=== PATIENT | male | born 2000 | race Caucasian/White ===

== ENCOUNTER 2018-02-17 21:17 | Emergency (ER) | payer BC, OTHER ==
--- NOTE | 2018-02-17 21:30 | UC ---
Hand/Wrist HPI - HPI Summary HPI Summary: 17 yo male presents with left middle finger laceration. He tells me that he was cutting wires in his car and the knife slipped and sliced his finger. Unsure date of last tetanus - History Of Current Complaint Stated Complaint: FINGER INJURY Time Seen by Provider: 02/17/18 21:30 Hx Obtained From: Patient Onset/Duration: Sudden Onset Severity Initially: Mild Severity Currently: Mild Pain Intensity: 2 Pain Scale Used: 0-10 Numeric - Allergies/Home Medications Allergies/Adverse Reactions: Allergies Allergy/AdvReac Type Severity Reaction Status Date / Time No Known Allergies Allergy Verified 02/17/18 21:42 PMH/Surg Hx/FS Hx/Imm Hx - Additional Past Medical History Additional PMH: ADHD - Surgical History Surgical History: None - Family History Known Family History: Positive: None - Social History Occupation: Student Lives: With Family Alcohol Use: None Substance Use Type: None Smoking Status (MU): Never Smoked Tobacco Review of Systems Constitutional: Negative Skin: Other - Laceration left middle finger Respiratory: Negative Cardiovascular: Negative Neurovascular: Negative Musculoskeletal: Negative Neurological: Negative Psychological: Negative All Other Systems Reviewed And Are Negative: Yes Physical Exam - Summary Physical Exam Summary: GENERAL: NAD. WDWN. No pain distress. SKIN: Left middle finger ulnar DIP: 1.5 linear laceration with exposed subcutaneous tissue. No tendon involvement appreciated. Bleeding mildly. No FB. NECK: Supple. Nontender. No lymphadenopathy. CHEST: No accessory muscle use. Breathing comfortably and in no distress. CV: RRR. Without m/r/g. MSK: Left middle finger FROM at DIP and PIP. NEURO: Alert. CN II-XII grossly intact. PSYCH: Age appropriate behavior. Triage Information Reviewed: Yes Vital Signs: Vital Signs: Temp Pulse Resp BP Pulse Ox 98.6 F 69 18 139/67 98 02/17/18 21:37 02/17/18 21:37 02/17/18 21:37 02/17/18 21:37 02/17/18 21:37 Hand/Wrist Course/Dx - Course Course Of Treatment: A time out was performed, witnessed, and signed. The area was irrigated with 250mL sterile saline. 2mL of 2% lidocaine without epi was administered and good anesthetization was achieved. In the usual sterile fashion , SIX 6-0 nylon interrupted sutures were placed. The wound was bandaged with telfa. The finger was placed in a finger splint to prevent flexion. Pt tolerated procedure well. tdap updated today - Differential Dx/Diagnosis Provider Diagnoses: Laceration left middle finger Discharge - Sign-Out/Discharge Documenting (check all that apply): Discharge/Admit/Transfer - Discharge Plan Condition: Stable Disposition: HOME Patient Education Materials: Care For Your Stitches (DC) Referrals: Sandra Guerrero MD [Primary Care Provider] - Additional Instructions: If you develop a fever, shortness of breath, chest pain, new or worsening symptoms - please call your PCP or go to the ED. 1) Please keep the area bandaged, clean, dry, and intact for the next 48hours. Keep the finger splinted for the next 48 hours 2) If you develop a fever, colored or thick discharge, increased pain or swelling - please call your PCP or go to the ED. 3) Please return in 10-14 days to have your SIX sutures removed. - Billing Disposition and Condition Condition: STABLE Disposition: Home Laceration Repair - Laceration Repair 1 Description: Linear Laceration Size After Repair: Length (cm) - 1.5 Modified For Repair: Yes Type Injection: Local Anesthesia Used: 2.0% Lido Irrigation With Pressure Irrigation Device: Yes Closure Material: Sutures - 6 Closure Method: Single Layer Suture Of: Skin Suture Type: Nylon - 6-0
[2018-02-17] MEDS ORDERED: Lidocaine 2% PF * 5 ML VIAL INJ ONE (21:33)
[2018-02-17] MEDS ORDERED: Tetan/Diph/Pertus SYR(Tdap)* 0.5 ML SYR(BOOSTRIX) use SYR IM ONE (21:35)
[2018-02-17 21:42] VITALS: BP 139/67
== END 2018-02-17 22:57 | disposition home or self-care (01) ==
LOC: UCEAST 21:17
DX: S61.213A Laceration without foreign body of left middle finger without damage to nail, initial encounter (principal); W26.0XXA Contact with knife, initial encounter; Y93.89 Activity, other specified; Y92.9 Unspecified place or not applicable; Z23 Encounter for immunization; F90.9 Attention-deficit hyperactivity disorder, unspecified type
CPT/HCPCS: 12001; 12031; 90715; 99211; G0463

== ENCOUNTER 2018-03-24 15:06 | Emergency (ER) | payer BC, OTHER ==
[2018-03-24 15:23] VITALS: BP 133/69
[2018-03-24] MEDS ORDERED: Amoxicillin/Clavulanate TAB* 875 MG PO ONE (15:43)
--- NOTE | 2018-03-24 15:44 | UC ---
Lower Extremity/Ankle HPI - HPI Summary HPI Summary: ran over right foot and ankle with a 4-Mccullough 6 days ago---right foot and ankle doe 7 cm diameter skin abrasion with 3 cm surrounding swelling and erythema - History of Current Complaint Chief Complaint: UCLowerExtremity Stated Complaint: ANKLE INJURY Time Seen by Provider: 03/24/18 15:25 Hx Obtained From: Patient Onset/Duration: Sudden Onset, Lasting Days - 6, Worse Since - ast 2-3 days Pain Intensity: 5 Pain Scale Used: 0-10 Numeric Aggravating Factor(s): Standing, Ambulation Alleviating Factor(s): Nothing Able to Bear Weight: Yes - Allergies/Home Medications Allergies/Adverse Reactions: Allergies Allergy/AdvReac Type Severity Reaction Status Date / Time No Known Allergies Allergy Verified 03/24/18 15:23 Home Medications: Home Medications Lisdexamfetamine Dimesylate [Vyvanse] 20 mg PO DAILY 03/24/18 [History Confirmed 03/24/18] PMH/Surg Hx/FS Hx/Imm Hx Previously Healthy: No - ADD - Surgical History Surgical History: Yes Surgery Procedure, Year, and Place: eye surgery for lazy eye, left knee repair - Family History Known Family History: Positive: None - Social History Occupation: Employed Full-time - [employer] Member Lives: With Family Alcohol Use: Weekly Substance Use Type: None Smoking Status (MU): Never Smoked Tobacco - Immunization History Hx Tetanus, Diphtheria Vaccination: Yes - uptodate 02/2018 Review of Systems Constitutional: Negative Skin: Other - skin abrasion about 7 cm diameter with surrounding swelling and erythema Eyes: Negative ENT: Negative Respiratory: Negative Cardiovascular: Negative Gastrointestinal: Negative Genitourinary: Negative Motor: Negative Neurovascular: Negative Musculoskeletal: Negative Neurological: Negative Psychological: Negative Is Patient Immunocompromised?: No All Other Systems Reviewed And Are Negative: Yes Physical Exam Triage Information Reviewed: Yes Appearance: Well-Appearing, No Pain Distress, Well-Nourished Vital Signs: Initial Vital Signs Temp 98.7 F 03/24/18 15:15 Pulse 80 03/24/18 15:15 Resp 16 03/24/18 15:15 BP 133/69 03/24/18 15:15 Pulse Ox 98 03/24/18 15:15 Vital Signs Reviewed: Yes Eye Exam: Normal Eyes: Positive: Conjunctiva Clear ENT Exam: Normal ENT: Positive: Normal ENT inspection, Hearing grossly normal. Negative: Trismus , Muffled voice, Hoarse voice Dental Exam: Normal Neck exam: Normal Neck: Positive: Supple, Nontender, No Lymphadenopathy Respiratory Exam: Normal Respiratory: Positive: Chest non-tender, No respiratory distress, No accessory muscle use Cardiovascular Exam: Normal Cardiovascular: Positive: RRR, Pulses Normal, Brisk Capillary Refill Musculoskeletal Exam: Normal Musculoskeletal: Positive: Strength Intact, ROM Intact, Edema @ - lateral right ankle and foot Neurological Exam: Normal Neurological: Positive: Alert, Muscle Tone Normal Psychological Exam: Normal Skin Exam: Other Skin: Positive: Other - skin abrasion with surrounding erythema lateral right ankle Diagnostics - Radiology No standard instances Xray Interpretation: No Acute Changes Radiology Interpretation Completed By: ED Physician, Radiologist - Patient Name : JOSE SCHWARTZ Medical Record#: [id number] Ordering Physician: Eugenia Bruno NP Acct.#: [id number] : 2000 Age: 17 Sex: M Location: [facility] Exam Date: 03/24/18 1543 ADM Status: REG ER Order Information: FOOT RIGHT 3+ VWS Accession Number: [id number] CPT: 39628 Indication: RIGHT ankle pain following injury 6 days ago. Comparison: No relevant prior exams available on the [facility] PACS for comparison. Technique: AP, mortise, and lateral views RIGHT ankle. Report: Normal articular alignment at the RIGHT ankle and foot. No cortical disruption or suspicious trabecular irregularity to suggest fracture. Negative for osteochondral lesion. Mild soft tissue swelling over the lateral malleolus of the ankle. IMPRESSION: #. Negative for RIGHT ankle or foot fracture or articular malalignment. #. Mild soft tissue swelling over the lateral malleolus. _ <Electronically signed by Ziyad Barker MD in OV> 03/24/181613 Dictated By: Ziyad Barker MD Dictated Date/Time: 03/24/181613 Transcribed Date/Time : 03/24/18 1610 Copy to: CC:Eugenia Bruno NP; Angela Santos MD; Nahun Cesar MD Imaging - [facility] Imaging - [place] [facility] [address] [address] ph ([phone]) ph ([phone]) ph ([phone]) This report is only to be considered final once signed by the Provider(s) as displayed in the "<Electronically Signed by > " field (s). Absence of a signature indicates the report is in a draft status and still needs to be finalized. In the event this document was created by someone other than the signing Provider, the individual initiating the document will be listed in the "Entered by:" or "Dictated by:" blas. 1 of 1 Patient Name: JOSE SCHWARTZ Medical Record#: [id number] Ordering Physician: Eugenia Bruno NP Acct.#: [id number] : 2000 Age: 17 Sex: M Location: [facility] Exam Date: 03/24/18 1543 ADM Status: REG ER Order Information: ANKLE RIGHT 3+VWS Accession Number: [id number] CPT: 43851 Indication: RIGHT ankle pain following injury 6 days ago. Comparison: No relevant prior exams available on the [facility] PACS for comparison. Technique: AP, mortise, and lateral views RIGHT ankle. Report: Normal articular alignment at the RIGHT ankle and foot. No cortical disruption or suspicious trabecular irregularity to suggest fracture. Negative for osteochondral lesion. Mild soft tissue swelling over the lateral malleolus of the ankle. IMPRESSION: #. Negative for RIGHT ankle or foot fracture or articular malalignment. #. Mild soft tissue swelling over the lateral malleolus. _ <Electronically signed by Ziyad aBrker MD in OV> 03/24/181613 Dictated By: Ziyad Barker MD Dictated Date/Time: 03/24/181613 Transcribed Date/Time : 07/21/18 1610 Copy to: CC:Eugenia Bruno HEALTH NURSE; Angela Santos MD; Nahun Cesar MD Imaging - [facility] Imaging - [place] [facility] - [facility] [id number] [place] [id number] ph ([phone]) ph ([phone]) ph ([phone]) This report is only to be considered final once signed by the Provider(s) as displayed in the "<Electronically Signed by > " field (s). Absence of a signature indicates the report is in a draft status and still needs to be finalized. In the event this document was created by someone other than the signing Provider, the individual initiating the document will be listed in the "Entered by:" or "Dictated by:" blas. 1 of 1 Lower Extremity Course/Dx - Course Course Of Treatment: crutches, elevated heat, augmentin follow with pcp prn - Differential Dx/Diagnosis Provider Diagnoses: right lateral ankle wound infection Discharge - Sign-Out/Discharge Documenting (check all that apply): Patient Departure - Discharge Plan Condition: Stable Disposition: HOME Prescriptions: Amoxicillin/Clavulanate TAB* [Augmentin TAB 875*] 875 mg PO BID #19 tab Patient Education Materials: Crutch Instructions (ED), Wound Infection (ED), Warm Compress or Soak (ED) Forms: *Work Release Referrals: Nahun Cesar MD [Primary Care Provider] - If Needed - Billing Disposition and Condition Condition: STABLE Disposition: Home
--- NOTE | 2018-03-24 16:17 | RAD ---
Indication: RIGHT ankle pain following injury 6 days ago. Comparison: No relevant prior exams available on the [facility] PACS for comparison. Technique: AP, mortise, and lateral views RIGHT ankle. Report: Normal articular alignment at the RIGHT ankle and foot. No cortical disruption or suspicious trabecular irregularity to suggest fracture. Negative for osteochondral lesion. Mild soft tissue swelling over the lateral malleolus of the ankle. IMPRESSION: #. Negative for RIGHT ankle or foot fracture or articular malalignment. #. Mild soft tissue swelling over the lateral malleolus.
--- NOTE | 2018-03-24 16:17 | RAD ---
Indication: RIGHT ankle pain following injury 6 days ago. Comparison: No relevant prior exams available on the [facility] PACS for comparison. Technique: AP, mortise, and lateral views RIGHT ankle. Report: Normal articular alignment at the RIGHT ankle and foot. No cortical disruption or suspicious trabecular irregularity to suggest fracture. Negative for osteochondral lesion. Mild soft tissue swelling over the lateral malleolus of the ankle. IMPRESSION: #. Negative for RIGHT ankle or foot fracture or articular malalignment. #. Mild soft tissue swelling over the lateral malleolus.
== END 2018-03-24 16:40 | disposition home or self-care (01) ==
LOC: UCEAST 15:06
DX: S90.511A Abrasion, right ankle, initial encounter (principal); L08.89 Other specified local infections of the skin and subcutaneous tissue; V89.0XXA Person injured in unspecified motor-vehicle accident, nontraffic, initial encounter; Y92.9 Unspecified place or not applicable
CPT/HCPCS: 99213; A9270-GY; G0463

== ENCOUNTER 2018-06-05 09:50 | Emergency (ER) | payer BC, OTHER ==
[2018-06-05 10:13] VITALS: BP 144/83
--- NOTE | 2018-06-05 10:19 | UC ---
Laceration HPI - HPI Summary HPI Summary: 17 yo male presents with abrasion to left side of nose sustained this morning. He was at work using a facing grinder when the wheel came off and brushed against his left nostril. He applied pressure to the area and came to . Tetanus was a few months ago during another injury. - History Of Current Complaint Chief Complaint: UCLaceration Stated Complaint: FACIAL LACERATION Time Seen by Provider: 06/05/18 10:19 Hx Obtained From: Patient Laceration Location: Face Severity: Mild Pain Intensity: 2 Pain Scale Used: 0-10 Numeric - Allergies/Home Medications Allergies/Adverse Reactions: Allergies Allergy/AdvReac Type Severity Reaction Status Date / Time No Known Allergies Allergy Verified 06/05/18 10:13 PMH/Surg Hx/FS Hx/Imm Hx - Additional Past Medical History Additional PMH: ADHD - Surgical History Surgical History: Yes Surgery Procedure, Year, and Place: eye surgery for lazy eye, left knee repair - Family History Known Family History: Positive: None - Social History Occupation: Employed Full-time Lives: With Family Alcohol Use: Weekly Substance Use Type: None Smoking Status (MU): Never Smoked Tobacco - Immunization History Most Recent Tetanus Shot: within 1 year Hx Tetanus, Diphtheria Vaccination: Yes - uptodate 02/2018 Review of Systems Constitutional: Negative Skin: Other - Abrasion left nostril Eyes: Negative ENT: Negative Respiratory: Negative Cardiovascular: Negative Neurovascular: Negative Neurological: Negative Psychological: Negative All Other Systems Reviewed And Are Negative: Yes Physical Exam - Summary Physical Exam Summary: GENERAL: NAD. WDWN. No pain distress. SKIN: Superficial and partial thickness abrasion to left nostril. No bleeding or drainage. No FB appreciated. NOSE: No nasal bleeding or deformity. Pt breathing easily through nose. NECK: Supple. Nontender. CHEST: No accessory muscle use. Breathing comfortably and in no distress. CV: Pulses intact. Cap refill <2seconds NEURO: Alert. PSYCH: Age appropriate behavior. Triage Information Reviewed: Yes Vital Signs: Initial Vital Signs Temp 98.8 F 06/05/18 10:08 Pulse 90 06/05/18 10:08 Resp 18 06/05/18 10:08 BP 144/83 06/05/18 10:08 Pulse Ox 100 06/05/18 10:08 Vital Signs Reviewed: Yes Laceration Course/Dx - Course/Dx Course Of Treatment: Wound was cleansed. No laceration or open wound that is able to sutured. Antibiotic ointment applied and dressed with telfa. Advised to change dressing daily - Differential Dx - Laceration/Wound Provider Diagnoses: Abrasion left nose Discharge - Sign-Out/Discharge Documenting (check all that apply): Patient Departure All imaging exams completed and their final reports reviewed: No Studies - Discharge Plan Condition: Stable Disposition: HOME Patient Education Materials: Abrasion (ED) Referrals: Nahun Cesar MD [Primary Care Provider] - Additional Instructions: If you develop a fever, shortness of breath, chest pain, new or worsening symptoms - please call your PCP or go to the ED. Your blood pressure was mildly elevated at todays visit. Please see your primary provider within 4 weeks for recheck and re-evaluation. 1) Apply antibiotic ointment and change the dressing daily - Billing Disposition and Condition Condition: STABLE Disposition: Home
== END 2018-06-05 10:54 | disposition home or self-care (01) ==
LOC: UCEAST 09:50
DX: S00.31XA Abrasion of nose, initial encounter (principal); F90.9 Attention-deficit hyperactivity disorder, unspecified type; W22.8XXA Striking against or struck by other objects, initial encounter; Y93.89 Activity, other specified; Y92.9 Unspecified place or not applicable; Y99.0 Civilian activity done for income or pay
CPT/HCPCS: 99212; G0463